=== PATIENT | male | born 1990 | race African-American/Black ===

== ENCOUNTER 2016-11-19 23:30 | Emergency (ER) | payer SELFPAY | END 2016-11-20 | disposition left against medical advice (07) | LOC: ER 23:45 | DX: Z53.21 Procedure and treatment not carried out due to patient leaving prior to being seen by health care provider (principal) ==

== ENCOUNTER 2016-12-18 00:38 | Emergency (ER) | payer MEDICAID ==
[~2016-12-18] VITALS: Ht 170.2 cm; Wt 63.0 kg
[2016-12-18] MEDS ORDERED: SODIUM CHLORIDE 0.9% 1,000 ML IV ONE (00:40)
[2016-12-18] MEDS ORDERED: MORPHINE SULFATE 4 MG/ML CPJ (NOT FOR IM USE) IV STA (00:40)
[2016-12-18] MEDS ORDERED: ONDANSETRON HCL 4MG/2ML VIAL IV STA (00:40)
[2016-12-18 00:41] VITALS: BP 148/72
[2016-12-18] MEDS ORDERED: CEFAZOLIN 1000MG PREMIX 50 ML IV ONE (00:45)
[2016-12-18 01:17] LABS: BASOPHILS % 0.4 % (0.0-2.0); EOSINOPHILS % 0.6 % (0.0-5.0); HEMATOCRIT. 39.1 % (42.0-52.0); HEMOGLOBIN. 13.1 g/dL (14.0-18.0); LYMPHOCYTES % 11.1 % (20.0-50.0); MEAN CORPUSCULAR HEMOGLOBIN 29.1 pg (28.0-32.0); MEAN CORPUSCULAR VOLUME 86.6 fL (80.0-94.0); MEAN PLATELET VOLUME 7.6 fl (7.4-10.4); MONOCYTES % 5.9 % (2.0-8.0); PLATELET 235 x1000/uL (130-400); RED BLOOD CELL COUNT 4.51 mill/uL (4.7-6.1)
[2016-12-18 01:24] LABS: CHLORIDE 103 mEq/L (98-107)
[2016-12-18 01:31] LABS: CARBON DIOXIDE 25 mEq/L (21-32)
== END 2016-12-18 01:26 | disposition short-term general hospital (02) ==
LOC: ER 00:39
DX: S31.113A Laceration without foreign body of abdominal wall, right lower quadrant without penetration into peritoneal cavity, initial encounter (principal); S31.010A Laceration without foreign body of lower back and pelvis without penetration into retroperitoneum, initial encounter; S21.111A Laceration without foreign body of right front wall of thorax without penetration into thoracic cavity, initial encounter; F17.210 Nicotine dependence, cigarettes, uncomplicated; F15.10 Other stimulant abuse, uncomplicated; F11.10 Opioid abuse, uncomplicated; X99.1XXA Assault by knife, initial encounter; Y93.89 Activity, other specified; Y92.89 Other specified places as the place of occurrence of the external cause
CPT/HCPCS: 36415; 51702; 71010; 80048; 85025; 86850; 86900; 86901; 96365; 96375; 99291; J0690; J2270; J2405; J7030; A4315

== ENCOUNTER 2019-09-29 21:42 | Emergency (ER) | payer MEDICAID ==
[~2019-09-29] VITALS: Ht 172.7 cm; Wt 90.0 kg
[2019-09-29] MEDS ORDERED: ACETAMINOPHEN 325MG TABLET PO ONE (22:45)
[2019-09-29 23:30] VITALS: BP 132/85
== END 2019-09-29 23:32 | disposition home or self-care (01) ==
LOC: ER 21:42
DX: R51 Headache (principal); F15.10 Other stimulant abuse, uncomplicated; F11.10 Opioid abuse, uncomplicated
CPT/HCPCS: 99283

== ENCOUNTER 2019-12-27 12:44 | Inpatient (IN) | payer MEDICAID ==
[~2019-12-27] VITALS: Ht 182.9 cm; Wt 80.7 kg
[2019-12-27] VITALS (27 sets, daily range): BP systolic 100–166; BP diastolic 56–104
[2019-12-27] MEDS ORDERED: LIDOCAINE HCL/EPINEPHRINE 1%-EPI 1:100,000 20 ML VIAL INFIL ONE (14:45)
[2019-12-27] MEDS ORDERED: SODIUM CHLORIDE 0.9% 1,000 ML IV ONE (14:48)
[2019-12-27] MEDS ORDERED: LIDOCAINE 1%/EPI 1:100,000 10 ML VIAL IJ ONE (15:00)
[2019-12-27] MEDS ORDERED: LEVETIRACETAM 500MG PREMIX 100 ML IV ONE (15:15)
[2019-12-27] MEDS ORDERED: PIPERACILLIN/TAZ 3.375G PREMIX 50 ML IV ONE (15:30)
[2019-12-27 15:35] LABS: CHLORIDE 108 mEq/L (98-107)
[2019-12-27 15:38] LABS: PARTIAL THROMBOPLASTIN TIME 27.7 sec (23.4-31.0); PROTHROMBIN TIME 10.5 sec (9.6-11.0)
[2019-12-27 15:40] LABS: BASOPHILS % 0.3 % (0.0-2.0); EOSINOPHILS % 0.5 % (0.0-5.0); ETHANOL BLOOD < 10 mg/dL; HEMATOCRIT. 41.9 % (42.0-52.0); HEMOGLOBIN. 14.4 g/dL (14.0-18.0); LYMPHOCYTES % 9.9 % (20.0-50.0); MEAN CORPUSCULAR HEMOGLOBIN 30.8 pg (28.0-32.0); MEAN CORPUSCULAR VOLUME 89.6 fL (80.0-94.0); MEAN PLATELET VOLUME 8.7 fl (7.4-10.4); MONOCYTES % 5.4 % (2.0-8.0); NEUTROPHILS % 83.9 % (40.0-76.0); PLATELET 217 x1000/uL (130-400); RED BLOOD CELL COUNT 4.68 mill/uL (4.7-6.1); RED CELL DISTRIBUTION WIDTH 14.3 % (11.6-14.6)
[2019-12-27] MEDS: DEXT 5%/LACTATED RINGERS 1,000 ML IV SCH (17:44)
[2019-12-27] MEDS ORDERED: GUAIFENESIN 200MG/10ML SUGAR FREE UDC PO PRN (18:00)
[2019-12-27] MEDS ORDERED: ACETAMINOPHEN 325MG TABLET PO PRN (18:00)
[2019-12-27] MEDS ORDERED: CLONIDINE 0.1MG TABLET PO PRN (18:00)
[2019-12-27] MEDS ORDERED: ONDANSETRON HCL 4MG/2ML INJ IV PRN (18:00)
[2019-12-27] MEDS ORDERED: IPRATROPIUM/ALBUTEROL 0.5-3(2.5)MG/3ML NEB HHN PRN (18:00)
[2019-12-27] MEDS ORDERED: LORAZEPAM 2MG/ML CPJ IV PRN (18:00)
[2019-12-27] MEDS ORDERED: DIPHENHYDRAMINE 50MG/ML VIAL IV PRN (18:00)
[2019-12-27] MEDS ORDERED: MAGNESIUM/ALUMINUM HYDROXIDE/SIMETHICONE 30ML UDC PO PRN (18:00)
[2019-12-27] MEDS ORDERED: DOCUSATE SODIUM 100MG CAPSULE PO PRN (18:00)
[2019-12-27] MEDS: NICARDIPINE 100 MG in SODIUM CHLORIDE 0.9% 60 ML IV PRN (18:24)
[2019-12-27] MEDS: CEFAZOLIN 1000MG PREMIX 50 ML IV SCH (20:43)
[2019-12-27] MEDS: LEVETIRACETAM 500MG PREMIX 100 ML IV SCH (20:43)
[2019-12-27] MEDS: MORPHINE SULFATE 2 MG/ML CPJ (NOT FOR IM USE) IV PRN (20:44)
[2019-12-27] MEDS ORDERED: LEVETIRACETAM 500 MG in SODIUM CHLORIDE 0.9% 100 ML IV SCH (21:00)
[2019-12-27] MEDS ORDERED: SODIUM CHLORIDE 0.9% INJ 3ML FLUSH IVF SCH (22:00)
[2019-12-28] VITALS (92 sets, daily range): BP systolic 100–146; BP diastolic 21–118
[2019-12-28] MEDS: CEFAZOLIN 1000MG PREMIX 50 ML IV SCH ×3 (03:27→18:00)
[2019-12-28 04:34] LABS: CHLORIDE 109 mEq/L (98-107)
[2019-12-28 04:36] LABS: BASOPHILS % 0.3 % (0.0-2.0); EOSINOPHILS % 1.8 % (0.0-5.0); HEMATOCRIT. 45.3 % (42.0-52.0); HEMOGLOBIN. 15.3 g/dL (14.0-18.0); LYMPHOCYTES % 18.7 % (20.0-50.0); MEAN CORPUSCULAR HEMOGLOBIN 30.5 pg (28.0-32.0); MEAN PLATELET VOLUME 8.4 fl (7.4-10.4); MONOCYTES % 9.4 % (2.0-8.0); NEUTROPHILS % 69.8 % (40.0-76.0); PLATELET 234 x1000/uL (130-400); RED BLOOD CELL COUNT 5.03 mill/uL (4.7-6.1); RED CELL DISTRIBUTION WIDTH 14.1 % (11.6-14.6)
[2019-12-28] MEDS: NICARDIPINE 100 MG in SODIUM CHLORIDE 0.9% 60 ML IV PRN (06:04)
[2019-12-28] MEDS: LEVETIRACETAM 500MG PREMIX 100 ML IV SCH (08:18)
[2019-12-28] MEDS: DEXT 5%/LACTATED RINGERS 1,000 ML IV SCH (08:19)
[2019-12-28] MEDS: MORPHINE SULFATE 2 MG/ML CPJ (NOT FOR IM USE) IV PRN (09:14)
[2019-12-28] MEDS ORDERED: MIDAZOLAM HCL 100 MG in DEXT 5% WATER 80 ML IV PRN (16:15)
[2019-12-28] MEDS ORDERED: FENTANYL CITRATE/PF 1,000 MCG in SODIUM CHLORIDE 0.9% 80 ML IV PRN (16:15)
[2019-12-28 18:50] LABS: CLARITY URINE CLEAR (CLEAR); COLOR URINE YELLOW (YELLOW); KETONES URINE NEGATIVE (NEGATIVE); LEUKOCYTE ESTERASE URINE NEGATIVE (NEGATIVE); NITRITE URINE NEGATIVE (NEGATIVE); OCCULT BLOOD URINE NEGATIVE (NEGATIVE); PH URINE 7.5 (4.5-8.0); PROTEIN URINE NEGATIVE (NEGATIVE); SPECIFIC GRAVITY URINE 1.014 (1.005-1.030); UROBILINOGEN URINE 0.2 E.U./dL (0.2-1.0)
[2019-12-28 19:51] LABS: *COCAINE SCREEN URINE NEGATIVE (NEGATIVE); CANNABINOID URINE SCREEN NEGATIVE (NEGATIVE); METHADONE URINE SCREEN NEGATIVE (NEGATIVE); OPIATES URINE SCREEN PRESUMTIVE POSITIVE (NEGATIVE); PHENCYCLIDINE URINE SCREEN NEGATIVE (NEGATIVE)
[2019-12-28 19:52] LABS: *AMPHETAMINES SCREEN URINE PRESUMTIVE POSITIVE (NEGATIVE); *BARBITURATES SCREEN URINE NEGATIVE (NEGATIVE); *BENZODIAZEPINES SCREEN URINE NEGATIVE (NEGATIVE)
[2019-12-28] MEDS: LEVETIRACETAM 500MG TABLET PO SCH (21:05)
[2019-12-29] VITALS (65 sets, daily range): BP systolic 70–164; BP diastolic 28–126
[2019-12-29] MEDS: CEFAZOLIN 1000MG PREMIX 50 ML IV SCH ×3 (03:19→18:31)
[2019-12-29 05:45] LABS: HEMATOCRIT 44.3 % (42.0-52.0); HEMOGLOBIN 14.9 g/dL (14.0-18.0); MEAN CORPUSCULAR HEMOGLOBIN 30.3 pg (28.0-32.0); MEAN CORPUSCULAR VOLUME 90.4 fL (80.0-94.0); PLATELET 225 x1000/uL (130-400); RED CELL DISTRIBUTION WIDTH 14.6 % (11.6-14.6)
[2019-12-29 05:49] LABS: CHLORIDE 105 mEq/L (98-107)
[2019-12-29] MEDS: LEVETIRACETAM 500MG TABLET PO SCH ×2 (08:08→20:26)
[2019-12-29] MEDS: MORPHINE SULFATE 2 MG/ML CPJ (NOT FOR IM USE) IV PRN (08:08)
[2019-12-30] VITALS: BP 123/71
[2019-12-30] MEDS: CEFAZOLIN 1000MG PREMIX 50 ML IV SCH ×2 (03:18→09:41)
[2019-12-30 04:00] VITALS: BP 130/84
[2019-12-30 06:19] VITALS: BP 138/81
[2019-12-30 08:00] VITALS: BP 122/85
[2019-12-30] MEDS: LEVETIRACETAM 500MG TABLET PO SCH (09:41)
== END 2019-12-30 14:30 | disposition home or self-care (01) | DRG 952 ==
LOC: ER 12:44 → MICUNO 15:54 → EDBEDREQ 16:03 → ENRESERV 16:15 → 6EST 12-29 16:01
PROVIDERS: ADMIT Internal Medicine; ATTEND Internal Medicine
PROC: 0WQ0XZZ Repair Head, External Approach (ICD-10-PCS; principal; 2019-12-27)
DX: S02.0XXA Fracture of vault of skull, initial encounter for closed fracture (principal); I62.9 Nontraumatic intracranial hemorrhage, unspecified; R65.10 Systemic inflammatory response syndrome (SIRS) of non-infectious origin without acute organ dysfunction; J18.9 Pneumonia, unspecified organism; E87.6 Hypokalemia; G93.89 Other specified disorders of brain; X58.XXXA Exposure to other specified factors, initial encounter; F17.210 Nicotine dependence, cigarettes, uncomplicated; F15.90 Other stimulant use, unspecified, uncomplicated; Z72.89 Other problems related to lifestyle; Y08.89XA Assault by other specified means, initial encounter; Y93.89 Activity, other specified; Y92.89 Other specified places as the place of occurrence of the external cause; Y99.8 Other external cause status; Z59.0 Homelessness; J98.11 Atelectasis
CPT/HCPCS: 36415; 71045; 80048; 80053; 80305; 80320; 81003; 85025; 85027; 86850; 86900; 93005; 99291; J0690; J1953; J2250; J2270; J2405; J2543; J3010; J3490; J7030; J7050; J7060; J7121; G0480

== ENCOUNTER 2020-02-13 14:31 | Emergency (ER) | payer MEDICAID ==
[~2020-02-13] VITALS: Ht 177.8 cm; Wt 86.5 kg
[2020-02-13] MEDS ORDERED: ACETAMINOPHEN 325MG TABLET PO STA (15:11)
[2020-02-13 15:44] LABS: BASOPHILS % 0.9 % (0.0-2.0); EOSINOPHILS % 3.3 % (0.0-5.0); HEMATOCRIT. 42.3 % (42.0-52.0); HEMOGLOBIN. 14.3 g/dL (14.0-18.0); LYMPHOCYTES % 37.3 % (20.0-50.0); MEAN CORPUSCULAR HEMOGLOBIN 30.4 pg (28.0-32.0); MEAN CORPUSCULAR VOLUME 90.3 fL (80.0-94.0); MEAN PLATELET VOLUME 8.3 fl (7.4-10.4); MONOCYTES % 7.7 % (2.0-8.0); NEUTROPHILS % 50.8 % (40.0-76.0); PLATELET 236 x1000/uL (130-400); RED BLOOD CELL COUNT 4.68 mill/uL (4.7-6.1); RED CELL DISTRIBUTION WIDTH 14.2 % (11.6-14.6)
[2020-02-13 15:52] LABS: CHLORIDE 109 mEq/L (98-107)
[2020-02-13 15:57] LABS: ETHANOL BLOOD < 10 mg/dL
[2020-02-13] MEDS ORDERED: POTASSIUM CHLORIDE 20MEQ TABLET SR PO ONE (16:15)
[2020-02-13 17:00] VITALS: BP 133/89
== END 2020-02-13 17:17 | disposition home or self-care (01) ==
LOC: ER 14:31
DX: R10.9 Unspecified abdominal pain (principal); F15.10 Other stimulant abuse, uncomplicated; F17.290 Nicotine dependence, other tobacco product, uncomplicated; F20.9 Schizophrenia, unspecified
CPT/HCPCS: 36415; 80053; 80320; 85025; 99283; G0480

== ENCOUNTER 2021-08-09 22:20 | Inpatient (IN) | payer MEDICAID ==
[~2021-08-09] VITALS: Ht 167.6 cm; Wt 88.0 kg
[2021-08-09] MEDS ORDERED: TETANUS, DIPHTHERIA, PERTUSSIS VAC/PF 0.5ML (>10YR OLD) IM ONE (22:45)
[2021-08-10 03:46] LABS: HEMATOCRIT 46.1 % (42.0-52.0); HEMOGLOBIN 15.7 g/dL (14.0-18.0); MEAN CORPUSCULAR HEMOGLOBIN 30.8 pg (28.0-32.0); MEAN CORPUSCULAR VOLUME 90.2 fL (80.0-94.0); PLATELET 235 x1000/uL (130-400); RED BLOOD CELL COUNT 5.11 mill/uL (4.7-6.1); RED CELL DISTRIBUTION WIDTH 14.3 % (11.6-14.6)
[2021-08-10 03:48] LABS: CHLORIDE 109 mEq/L (98-107)
[2021-08-10] MEDS ORDERED: HYDRALAZINE 20MG/ML VIAL IV PRN (04:15)
[2021-08-10] MEDS: HYDROCODONE/ACETAMINOPHEN 5/325MG TABLET PO PRN ×3 (04:18→22:51)
[2021-08-10] MEDS ORDERED: ONDANSETRON HCL 4MG/2ML INJ IV PRN (07:45)
[2021-08-10] MEDS ORDERED: GUAIFENESIN 200MG/10ML SUGAR FREE UDC PO PRN (07:45)
[2021-08-10] MEDS ORDERED: MAGNESIUM/ALUMINUM HYDROXIDE/SIMETHICONE 30ML UDC PO PRN (07:45)
[2021-08-10] MEDS ORDERED: CLONIDINE 0.1MG TABLET PO PRN (07:45)
[2021-08-10] MEDS ORDERED: ACETAMINOPHEN 325MG TABLET PO PRN ×2 (07:45)
[2021-08-10 11:14] VITALS: BP 132/92
[2021-08-10 12:00] VITALS: BP 132/92
[2021-08-10 12:13] LABS: *AMPHETAMINES SCREEN URINE PRESUMTIVE POSITIVE (NEGATIVE); *BARBITURATES SCREEN URINE NEGATIVE (NEGATIVE); *BENZODIAZEPINES SCREEN URINE NEGATIVE (NEGATIVE); *COCAINE SCREEN URINE NEGATIVE (NEGATIVE); METHADONE URINE SCREEN NEGATIVE (NEGATIVE)
[2021-08-10 12:14] LABS: CANNABINOID URINE SCREEN NEGATIVE (NEGATIVE); OPIATES URINE SCREEN NEGATIVE (NEGATIVE); PHENCYCLIDINE URINE SCREEN NEGATIVE (NEGATIVE)
[2021-08-10 16:00] VITALS: BP 141/97
[2021-08-10 20:00] VITALS: BP 132/87
[2021-08-11] VITALS: BP 136/93
[2021-08-11 04:00] VITALS: BP 124/88
[2021-08-11] MEDS: HYDROCODONE/ACETAMINOPHEN 5/325MG TABLET PO PRN (05:19)
[2021-08-11 07:26] LABS: BASOPHILS % 0.5 % (0.0-2.0); EOSINOPHILS % 3.6 % (0.0-5.0); HEMATOCRIT. 47.4 % (42.0-52.0); HEMOGLOBIN. 16.2 g/dL (14.0-18.0); LYMPHOCYTES % 27.1 % (20.0-50.0); MEAN CORPUSCULAR HEMOGLOBIN 30.9 pg (28.0-32.0); MEAN CORPUSCULAR VOLUME 90.7 fL (80.0-94.0); MEAN PLATELET VOLUME 8.6 fl (7.4-10.4); MONOCYTES % 8.1 % (2.0-8.0); NEUTROPHILS % 60.7 % (40.0-76.0); PLATELET 237 x1000/uL (130-400); RED BLOOD CELL COUNT 5.23 mill/uL (4.7-6.1); RED CELL DISTRIBUTION WIDTH 14.5 % (11.6-14.6)
[2021-08-11 07:45] LABS: CHLORIDE 106 mEq/L (98-107)
[2021-08-11 08:00] VITALS: BP 136/97
[2021-08-11 11:48] VITALS: BP 130/83
[2021-08-11 16:00] VITALS: BP 132/90
[2021-08-11 16:13] VITALS: BP 132/90
[2021-08-11] MEDS ORDERED: TOPUD PO (16:22)
== END 2021-08-11 18:00 | disposition home or self-care (01) | DRG 55 ==
LOC: ER 22:20 → 8WST 08-10 01:49 → SUPCPDRO 08-10 07:21 → EDBEDREQSVC 08-10 08:48 → ENRESERV 08-10 08:50
PROVIDERS: ADMIT Internal Medicine; ATTEND Internal Medicine
PROC: 0HQ0XZZ Repair Scalp Skin, External Approach (ICD-10-PCS; principal; 2021-08-09)
DX: S06.5X9A Traumatic subdural hemorrhage with loss of consciousness of unspecified duration, initial encounter (principal); R65.11 Systemic inflammatory response syndrome (SIRS) of non-infectious origin with acute organ dysfunction; F15.90 Other stimulant use, unspecified, uncomplicated; M25.512 Pain in left shoulder; F20.9 Schizophrenia, unspecified; Z20.822 Contact with and (suspected) exposure to COVID-19; R55 Syncope and collapse; S01.01XA Laceration without foreign body of scalp, initial encounter; Y04.8XXA Assault by other bodily force, initial encounter; Y93.89 Activity, other specified; Y92.89 Other specified places as the place of occurrence of the external cause; Y99.8 Other external cause status; Z59.02 Unsheltered homelessness
CPT/HCPCS: 36415; 73030; 73090; 80048; 80053; 80305; 80320; 85025; 85027; 86850; 86900; 87426; 90715; 99285; J0360; G0480

== ENCOUNTER 2023-10-03 23:58 | Emergency (ER) | payer MEDICAID ==
[~2023-10-03] VITALS: Ht 172.7 cm; Wt 90.0 kg
[~2023-10-03 23:58] MED LIST: TOPUD PO
[2023-10-04 00:05] VITALS: TEMP 97.3; O2SAT 100
[2023-10-04 01:50] VITALS: BP 145/97; PULSE 108; RESP 18
[2023-10-04] MEDS: KETOROLAC 15MG/ML VIAL IM ONE (01:50)
[2023-10-04] MEDS ORDERED: LIDO700A15 TP (01:56)
== END 2023-10-04 02:02 | disposition home or self-care (01) ==
LOC: ER 23:58
DX: R07.89 Other chest pain (principal); M25.532 Pain in left wrist; F20.9 Schizophrenia, unspecified
CPT/HCPCS: 99284; 71045; 73110; 96372; J1885

== ENCOUNTER 2024-06-30 00:43 | Emergency (ER) | payer MEDICAID ==
[~2024-06-30] VITALS: Ht 172.7 cm; Wt 100.0 kg
[~2024-06-30 00:43] MED LIST changes: +LIDO700A15 TP
[2024-06-30 01:13] VITALS: TEMP 36.7; O2SAT 98
[2024-06-30 03:31] VITALS: BP 170/116; PULSE 100; RESP 18
[2024-06-30] MEDS: KETOROLAC 15MG/ML VIAL IM ONE (03:31)
[2024-06-30] MEDS: KETOROLAC 15MG/ML VIAL IM NR (03:31)
[2024-06-30] MEDS ORDERED: NAPR-1176 MT (03:58)
== END 2024-06-30 05:25 | disposition home or self-care (01) ==
LOC: ER 00:43
DX: S89.82XA Other specified injuries of left lower leg, initial encounter (principal); F10.90 Alcohol use, unspecified, uncomplicated; F15.90 Other stimulant use, unspecified, uncomplicated; X58.XXXA Exposure to other specified factors, initial encounter; Y93.89 Activity, other specified; Y92.89 Other specified places as the place of occurrence of the external cause; Y99.8 Other external cause status; Y90.9 Presence of alcohol in blood, level not specified
CPT/HCPCS: 73562; 96372; 99283; J1885; Z7610; L1830

== ENCOUNTER 2025-02-23 14:20 | Emergency (ER) | payer MEDICAID ==
[~2025-02-23] VITALS: Ht 172.7 cm; Wt 105.0 kg
[~2025-02-23 14:20] MED LIST changes: +LIDO-53 TP; -LIDO700A15 TP; +NAPR-1176 MT
[2025-02-23 14:29] VITALS: BP 151/103; TEMP 36.7; O2SAT 100
[2025-02-23 14:36] VITALS: PULSE 86; RESP 18; O2SAT 99
== END 2025-02-23 20:06 | disposition left against medical advice (07) ==
LOC: ER 14:20
DX: R51.9 Headache, unspecified (principal)
CPT/HCPCS: 99281